=== PATIENT | female | born 1970 | race African-American/Black ===

== ENCOUNTER 2018-07-19 16:39 | Emergency (ER) | payer MEDICAID, OTHER ==
[~2018-07-19] VITALS: Ht 172.7 cm; Wt 100.0 kg
[2018-07-19] MEDS ORDERED: HYDROCODONE/ACETAMINOPHEN 5/325MG TABLET PO ONE (17:45)
[2018-07-19 18:23] LABS: CLARITY URINE CLEAR (CLEAR); COLOR URINE YELLOW (YELLOW); KETONES URINE NEGATIVE (NEGATIVE); LEUKOCYTE ESTERASE URINE NEGATIVE (NEGATIVE); NITRITE URINE NEGATIVE (NEGATIVE); OCCULT BLOOD URINE NEGATIVE (NEGATIVE); PROTEIN URINE NEGATIVE (NEGATIVE); SPECIFIC GRAVITY URINE 1.006 (1.005-1.030)
[2018-07-19] MEDS ORDERED: ONDANSETRON 4MG ODT PO ONE (18:45)
[2018-07-19] MEDS ORDERED: MORPHINE SULFATE 10 MG/ML CPJ IM ONE (18:45)
[2018-07-19 19:36] VITALS: BP 139/73
== END 2018-07-19 22:01 | disposition home or self-care (01) ==
LOC: ER 16:39
DX: S00.83XA Contusion of other part of head, initial encounter (principal); S40.011A Contusion of right shoulder, initial encounter; S30.0XXA Contusion of lower back and pelvis, initial encounter; S90.112A Contusion of left great toe without damage to nail, initial encounter; F32.9 Major depressive disorder, single episode, unspecified; I10 Essential (primary) hypertension; V87.9XXA Person injured in other specified (collision)(noncollision) transport accidents involving nonmotor vehicle (traffic), initial encounter; Y93.89 Activity, other specified; Y92.410 Unspecified street and highway as the place of occurrence of the external cause
CPT/HCPCS: 70450; 72100; 73030; 73660; 81003; 81025; 96372; 99284; J2270; Q0162; Z7610

== ENCOUNTER 2022-02-11 16:18 | Emergency (ER) | payer MEDICAID ==
[~2022-02-11] VITALS: Ht 177.8 cm; Wt 100.0 kg
[2022-02-11 16:24] VITALS: BP 182/100
[2022-02-11] MEDS ORDERED: TRAMADOL 50MG TABLET PO ONE (17:00)
[2022-02-11] MEDS ORDERED: HYDROCODONE/ACETAMINOPHEN 5/325MG TABLET PO ONE (17:45)
[2022-02-11] MEDS ORDERED: LIDO1ADH23 TP (18:09)
== END 2022-02-11 18:18 | disposition home or self-care (01) ==
LOC: ER 16:18
DX: S80.212A Abrasion, left knee, initial encounter (principal); M79.18 Myalgia, other site; W01.0XXA Fall on same level from slipping, tripping and stumbling without subsequent striking against object, initial encounter; Y92.89 Other specified places as the place of occurrence of the external cause; Z88.6 Allergy status to analgesic agent
CPT/HCPCS: 72100; 72170; 73562; 99284